=== PATIENT | male | born 1975 | race American Indian/Alaskan Native ===

== ENCOUNTER 2022-07-20 11:10 | Emergency (ER) | payer OTHER ==
[~2022-07-20] VITALS: Ht 177.8 cm; Wt 79.4 kg
[2022-07-20] MEDS ORDERED: DOXYCYCLINE HY100 MG PO (14:58)
[2022-07-20 16:14] VITALS: BP 117/77
== END 2022-07-20 16:16 | disposition other institution, planned readmission (95) ==
LOC: ED 11:10
DX: S01.511A Laceration without foreign body of lip, initial encounter (principal); Y04.0XXA Assault by unarmed brawl or fight, initial encounter; Z88.0 Allergy status to penicillin; Z23 Encounter for immunization
CPT/HCPCS: 12001; 70450; 90471; 90714; 99284-25